=== PATIENT | male | born 1990 | race Caucasian/White ===

== ENCOUNTER 2017-11-28 18:15 | Emergency (ER) ==
[2017-11-28 18:22] VITALS: BP 144/80; TEMP 97.7; BMI 24.4
--- NOTE | 2017-11-28 19:05 | CT ---
EXAM: CT abdomen pelvis without intravenous contrast 11/28/2017. Sagittal and coronal reformatted i mages obtained HISTORY: Lower abdominal pain COMPARISON: None. FINDINGS: The liver and gallbladder show no acute process. The adrenal glands and kidneys show no acute abnormality. The spleen and pancreas show no acute abnormality. There is no bowel obstruction. The appendix is normal. Unremarkable urinary bladder. No free air or free fluid. No acute osseous abnormality. Compression of the superior and inferior endplate of T9 appears chronic . IMPRESSION: 1. No urinary or bowel obstruction and normal appendix. 2. No acute inflammatory process identified within the limitation of a noncontrast enhanced examinat ion.
[2017-11-28] MEDS ORDERED: ROCEPHIN IM STA (19:09)
[2017-11-28] MEDS ORDERED: LIDOCAINE HCL 1% SDV SUBCUT STA (19:09)
[2017-11-28] MEDS ORDERED: ZITHROMAX PO STA (19:11)
--- NOTE | 2017-11-28 19:14 | ED.PDOC ---
General ED Provider: Dr. COSME GUPTA-ER Chief Complaint: Penile Problem Stated Complaint: it hurts to pee--i had unprotected intercourse--denies any discharge or fever Time Seen by Physician: 18:20 Mode of Arrival: Walk-In Information Source: Patient Exam Limitations: No limitations Nursing and Triage Documentation Reviewed and Agree: Yes Reviewed sepsis parameters & appropriate labs ordered?: Yes System Inflammatory Response Syndrome: Not Applicable Sepsis Protocol: For patient's 13 years and over: Temp is 96.8 and below OR 101 and greater Pulse >90 BPM Resp >20/minute Acutely Altered Mental Status Are patient's symptoms suggestive of a new infection, such as: -Pneumonia -Skin, Soft Tissue -Endocarditis -UTI -Bone, Joint Infection -Implantable Device -Acute Abdominal Infection -Wound Infection -Meningitis -Blood Stream Catheter Infection -Unknown Complaint Exam - Complaint/Exam Patient Complains of: Reports: Dysuria Onset/Duration: 4 days Symptoms Are: Still present Initial Severity: Mild Current Severity: Mild Location of Pain: Reports: Penis, Scrotum Character: Reports: Dull Aggravating: Reports: Voiding Alleviating: Reports: None Associated Signs and Symptoms: Reports: Dysuria. Denies: Diaphoresis, Back pain , Fever, Hematuria, Constipation, Blood in stool, Rectal pain, Appetite change, Nausea, Vomiting, Penile swelling, Penile discharge, Decreased urine output, Increased urine frequency, Increased thirst, Decreased activity, Lethargy, Scrotal pain, Scrotal swelling, Abdominal Pain Testicular Torsion Risk Factors: Reports: None Surgical Obstruction Risk Factors: Reports: None Abdominal Findings: Present: None Differential Diagnoses: Prostatitis, UTI, Other Review of Systems - Review Of Systems Constitutional: Reports: No symptoms Eyes: Reports: No symptoms Ears, Nose, Mouth, Throat: Reports: No symptoms Respiratory: Reports: No symptoms Cardiac: Reports: No symptoms GI: Reports: No symptoms : Reports: Dysuria, Hematuria, Pain Musculoskeletal: Reports: No symptoms Skin: Reports: No symptoms Neurological: Reports: No symptoms Endocrine: Reports: No symptoms Hematologic/Lymphatic: Reports: No symptoms All Other Systems: Reviewed and Negative Past Medical History - Past Medical History Previously Healthy: Yes Endocrine: Reports: None Cardiovascular: Reports: None Respiratory: Reports: None Hematological: Reports: None Gastrointestinal: Reports: None Genitourinary: Reports: None Neuro/Psych: Reports: None Musculoskeletal: Reports: Unknown Cancer: Reports: None - Surgical History General Surgical History: Reports: None - Family History Family History: Reports: None - Social History Smoking Status: Current every day smoker Hx Substance Use: (marijuana) Alcohol Screening: None - Immunizations Tetanus Shot up to Date: Yes Physical Exam - Physical Exam Appearance: Well-appearing, No pain distress, Well-nourished Pain Distress: Mild Eyes: CARITO ENT: Ears normal, Nose normal, Oropharynx normal Neck: Supple Respiratory: Airway patent, Breath sounds clear, Breath sounds equal, Respirations nonlabored Cardiovascular: RRR GI/: Soft Musculoskeletal: Normal strength, ROM intact, No edema, No calf tenderness Skin: Warm, Dry, Normal color Neurological: Sensation intact Psychiatric: Affect appropriate, Mood appropriate Critical Care Note - Critical Care Note Total Time (mins): 0 Course - Course Hematology/Chemistry: 11/28/17 18:50 Orders, Labs, Meds: Lab Review 11/28/17 11/28/17 18:35 18:50 WBC 8.14 RBC 5.12 Hgb 15.6 Hct 45.7 MCV 89.3 MCH 30.5 MCHC 34.1 RDW Coeff of Mu 13.6 Plt Count 178 Immature Gran % (Auto) 0.2 Neut % (Auto) 52.5 Lymph % (Auto) 31.6 [place] % (Auto) 13.5 H Eos % (Auto) 1.7 Baso % (Auto) 0.5 Immature Gran # (Auto) 0.0 Neut # 4.3 Lymph # 2.6 [place] # 1.1 Eos # 0.1 Baso # 0.0 Urine Color Yellow Urine Clarity Clear Urine pH 5.5 Ur Specific [place] >=1.030 Urine Protein 2+ Urine Glucose (UA) Negative Urine Ketones 1+ Urine Blood Negative Urine Nitrite Negative Urine Bilirubin 1+ Urine Urobilinogen 1.0 Ur Leukocyte Esterase Negative Urine Microscopic RBC 0-2 Urine Microscopic WBC 0-2 Ur Squamous Epith Cells Not present Urine Bacteria Trace Urine Mucus 2+ Urine Sperm 1+ Orders Category Date Time Status AMYLASE Stat LAB 11/28/17 18:50 Received CBC W/ AUTO DIFF Stat LAB 11/28/17 18:50 Completed CHLAMYDIA/GC AMPLIFICATION Stat LAB 11/28/17 18:35 Received COMPREHENSIVE METABOLIC PANEL Stat LAB 11/28/17 18:50 Received ESR Stat LAB 11/28/17 18:50 Received LIPASE Stat LAB 11/28/17 18:50 Received RAPID HIV SCREEN Stat LAB 11/28/17 19:11 Ordered RPR [RAPID PLASMA REAGIN] Stat LAB 11/28/17 19:11 Ordered UA [URINALYSIS C & S IF INDICATED] Stat LAB 11/28/17 18:35 Completed Azithromycin [Zithromax] MEDS 11/28/17 19:11 Stat 1,000 mg PO ONCE STA Ceftriaxone Sodium [Rocephin] MEDS 11/28/17 19:09 Stat 250 mg IM ONCE STA Lidocaine HCl/Pf [Lidocaine HCl 1% Sdv] MEDS 11/28/17 19:09 Stat 5 ml SU[address]UT ONCE STA CT ABDOMEN/PELVIS WO CONTRAST Stat RADS 11/28/17 18:38 Completed Medications Generic Name Dose Route Start Last Admin Trade Name Gm PRN Reason Stop Dose Admin Azithromycin 1,000 mg 11/28/17 19:11 Zithromax PO 11/28/17 19:12 ONCE STA Ceftriaxone Sodium 250 mg 11/28/17 19:09 Rocephin IM 11/28/17 19:10 ONCE STA Lidocaine HCl 5 ml 11/28/17 19:09 Lidocaine Hcl 1% Sdv SUBCUT 11/28/17 19:10 ONCE STA Vital Signs: Temp Pulse Resp BP Pulse Ox 11/28/17 18:16 97.7 F 74 20 144/80 H 97 Departure - Departure Time of Disposition: 19:14 Disposition: HOME SELF-CARE Discharge Problem: Urethritis Instructions: Nonspecific Urethritis in Men (ED) Condition: Good Pt referred to PMD for follow-up: Yes Additional Instructions: doxycycline 100mg bid x 7 days--abstain from sex until culture results are known --f/u with a pcp this week--can use motrin for any discomfort Allergies/Adverse Reactions: Allergies No Known Allergies Allergy (Verified 11/28/17 18:23) Home Medications: Ambulatory Orders 1 [No Reported Medications] 11/28/17 Disposition Discussed With: Patient, Family
== END 2017-11-28 19:50 | disposition home or self-care (01) ==
LOC: ED 18:15
DX: N34.2 Other urethritis (principal); F17.210 Nicotine dependence, cigarettes, uncomplicated
CPT/HCPCS: 36415; 80053; 81001; 82150; 83690; 85025; 85651; 86592; 87800; 96372; 99283